=== PATIENT | male | born 2000 | race Caucasian/White ===

== ENCOUNTER → 2020-05-11 | Outpatient (CLI) | payer MEDICAID, OTHER ==
--- NOTE | 2020-05-11 16:10 | KCIC ---
Ultrasound of the soft tissues of neck without comparison for adenopathy. Technique an findings: Real-time grayscale and color Doppler evaluation of the areas of interest is p erformed. There are several morphologically normal-appearing lymph nodes throughout the interrogated areas within the neck. No pathologically enlarged lymph nodes or morphologically abnormal lymph nodes are identified. No fluid collections are seen. IMPRESSION: 1. Bilateral adenopathy, with no pathologically enlarged or morphologically abnormal lymph nodes iden tified. Electronically signed by: Jc Espitia MD (05/11/2020 4:08 PM) [id number]
== END ==
LOC: KCIC US 10:46
PROVIDERS: ATTEND Nurse Practitioner Family
DX: R59.1 Generalized enlarged lymph nodes (principal)
CPT/HCPCS: 76536